=== PATIENT | male | born 1940 | race Caucasian/White ===

== ENCOUNTER → 2018-04-21 17:19 | Outpatient (CLI) | payer MEDICARE, OTHER, SELFPAY ==
[2018-04-21 18:03] LABS: Hematocrit 35.3 % (41-53)
[2018-04-21 18:21] LABS: BUN Creatinine Ratio 35.4 (6-22); Blood Urea Nitrogen 46 mg/dL (9-20); Calcium 9.2 mg/dL (8.4-10.2); Carbon Dioxide 30 mmol/L (22-32); Chloride 100 mmol/L (98-107); Estimated Glomerular Filt Rate 53.3 mL/min (>60); Glucose 101 mg/dL (80-110); HEMOLYSIS < 15 (0-50); Potassium 4.4 mmol/L (3.4-5.1); Sodium 141 mmol/L (137-145)
[2018-04-21 19:13] LABS: Total Iron Binding Capacity 349 ug/mL (261-462)
[2018-04-21 19:14] LABS: Creatinine Urine Random 53.1 mg/dL; Protein (Total) Urine Random 10 mg/dL (0-12); Protein Creatinine Ratio Urine 0.18 GRAM/24H
[2018-04-21 19:45] LABS: HEMOLYSIS < 15 (0-50)
[2018-04-21 20:02] LABS: Transferrin 253 mg/dL (206-381)
[2018-04-21 20:08] LABS: Iron 76 ug/dL (49-181); Percent Iron Saturation 22 % (20-50)
[2018-04-21 21:06] LABS: Ferritin 52.5 ng/mL (17.9-464)
[2018-04-23 14:58] LABS: Parathyroid Hormone Int 87 pg/mL (14-64)
== END ==
PROVIDERS: PCP Family Medicine; Visit Provider Student in an Organized Health Care Education/Training Program
DX: N05.9 Unspecified nephritic syndrome with unspecified morphologic changes (principal); D50.0 Iron deficiency anemia secondary to blood loss (chronic); D64.9 Anemia, unspecified; N25.81 Secondary hyperparathyroidism of renal origin; R80.9 Proteinuria, unspecified; D50.9 Iron deficiency anemia, unspecified
CPT/HCPCS: 36415; 80048; 82570; 82728; 83540; 83550; 83970; 84156; 85014; 85018

== ENCOUNTER → 2018-07-30 08:54 | Outpatient (CLI) | payer MEDICARE, OTHER, SELFPAY ==
--- NOTE | 2018-07-30 08:55 | DI.RAD.S_ITS ---
PROCEDURE: FL BARIUM SWALLOW W SPEECH INDICATIONS: trouble swallowing TECHNIQUE: Examination was conducted in conjunction with speech pathology per standard protocol. In the lateral projection, filming was performed of the patient swallowing. AP projection filming may also be performed with patient swallowing. COMPARISON: None. FINDINGS: Function: The oral preparatory phase appears normal, with proper containment. The subsequent oral propulsive phase appears normal. Relatively prominently diminished dorsal epiglottic tilt was observed during the pharyngeal phase of swallowing, and there was episodic mild anterior penetration of thin liquids without tracheal aspiration. The esophageal phase of swallowing did appear normal with all proffered substances. There was mild to moderate pathologic vallecular pooling. Morphology: No cricopharyngeal bar is identified. No cervical esophageal webs. No Zenker's diverticulum. No strictures. IMPRESSION: Diminished esophageal tilt during the pharyngeal phase of swallowing, anterior penetration observed without aspiration. Mild to moderate patellectomy were pooling of liquids was observed over the course of the examination. Dictated by: Noe Preston M.D. on 07/30/2018 at 11:06 Approved by: Noe Preston M.D. on 07/30/2018 at 11:09
== END ==
PROVIDERS: Family Provider Family Medicine; PCP Family Medicine; Visit Provider Family Medicine
DX: R13.10 Dysphagia, unspecified (principal)
CPT/HCPCS: 74230; 92611

== ENCOUNTER → 2018-08-13 08:54 | Outpatient (CLI) | payer MEDICARE, OTHER, SELFPAY ==
[2018-08-13 09:44] LABS: Alanine Aminotransferase 48 IU/L (21-72); Albumin 4.3 g/dL (3.5-5.0); Albumin Globulin Ratio 1.4 (1.0-2.8); Alkaline Phosphatase 71 U/L (38-126); Aspartate Aminotransferase 41 IU/L (17-59); BUN Creatinine Ratio 34.7 (6-22); Bilirubin Total 0.5 mg/dL (0.2-1.3); Blood Urea Nitrogen 52 mg/dL (9-20); Calcium 9.3 mg/dL (8.4-10.2); Carbon Dioxide 28 mmol/L (22-32); Chloride 106 mmol/L (98-107); Cholesterol 199 mg/dL (140-199); Estimated Glomerular Filt Rate 45.1 mL/min (>60); Glucose 128 mg/dL (80-110); HDL Cholesterol 46 mg/dL (40-60); HEMOLYSIS < 15 (0-50); Hemoglobin A1C% w Est Avg Glu 6.8 % (4.0-6.0); LDL Cholesterol Calculated 117 mg/dL (<100); Potassium 4.3 mmol/L (3.4-5.1); Sodium 145 mmol/L (137-145); Total Protein 7.3 g/dL (6.3-8.2); Triglycerides 181 mg/dL (35-150)
[2018-08-13 12:35] LABS: Thyroid Stimulating Hormone 2.97 uIU/mL (0.47-4.68)
[2018-08-13 13:13] LABS: Free T3, Triiodothyronine Free 2.02 pg/mL (2.77-5.27)
== END ==
PROVIDERS: PCP Family Medicine; Visit Provider Family Medicine
DX: E11.29 Type 2 diabetes mellitus with other diabetic kidney complication (principal); E11.9 Type 2 diabetes mellitus without complications; M48.061 Spinal stenosis, lumbar region without neurogenic claudication; N17.9 Acute kidney failure, unspecified; N18.3 Chronic kidney disease, stage 3 (moderate); Z95.2 Presence of prosthetic heart valve; E03.9 Hypothyroidism, unspecified
CPT/HCPCS: 36415; 80053; 80061; 83036; 84439; 84443; 84481

== ENCOUNTER → 2018-11-24 11:33 | Outpatient (CLI) | payer MEDICARE, OTHER, SELFPAY ==
[2018-11-24 12:27] LABS: Add Manual Diff / Slide Review NO; Basophils Percent Auto 0.6 % (0-2); Eosinophils Percent Auto 9.5 % (2-4); Hematocrit 36.2 % (41-53); Hemoglobin 11.8 g/dL (13.5-17.5); Hemoglobin A1C% w Est Avg Glu 7.8 % (4.0-6.0); Lymphocytes Percent Auto 20.4 % (25-40); Mean Corpuscular HGB Conc 32.6 % (30-36); Mean Corpuscular Hemoglobin 29.3 PG (26-34); Mean Corpuscular Volume 89.9 fL (80-100); Neutrophils Absolute Auto 3700 /uL (1500-7000); Neutrophils Percent Auto 60.5 % (50-75); Platelet Count 175 X10^3/uL (150-400); Red Blood Cell Count 4.03 X10^6/uL (4.5-5.9); Red Cell Distribution Width 14.1 % (11.6-14.8); White Blood Cell Count 6.2 X10^3/uL (4.5-11.0)
[2018-11-24 12:32] LABS: Alanine Aminotransferase 58 IU/L (21-72); Albumin 4.2 g/dL (3.5-5.0); Albumin Globulin Ratio 1.4 (1.0-2.8); Alkaline Phosphatase 70 U/L (38-126); Aspartate Aminotransferase 40 IU/L (17-59); BUN Creatinine Ratio 27.1 (6-22); Bilirubin Total 0.4 mg/dL (0.2-1.3); Blood Urea Nitrogen 38 mg/dL (9-20); Calcium 9.3 mg/dL (8.4-10.2); Carbon Dioxide 28 mmol/L (22-32); Chloride 104 mmol/L (98-107); Cholesterol 172 mg/dL (140-199); Estimated Glomerular Filt Rate 48.9 mL/min (>60); Glucose 128 mg/dL (80-110); HDL Cholesterol 48 mg/dL (40-60); HEMOLYSIS < 15 (0-50); LDL Cholesterol Calculated 98 mg/dL (<100); Potassium 4.1 mmol/L (3.4-5.1); Sodium 141 mmol/L (137-145); Total Protein 7.2 g/dL (6.3-8.2); Triglycerides 132 mg/dL (35-150)
[2018-11-24 12:53] LABS: Free T3, Triiodothyronine Free 2.62 pg/mL (2.77-5.27); Free T4, Direct Thyroxine 1.05 ng/dL (0.78-2.19)
== END ==
PROVIDERS: PCP Family Medicine; Visit Provider Family Medicine
DX: E03.9 Hypothyroidism, unspecified (principal); E11.9 Type 2 diabetes mellitus without complications; N18.3 Chronic kidney disease, stage 3 (moderate)
CPT/HCPCS: 36415; 80053; 80061; 83036; 84439; 84443; 84481; 85025

== ENCOUNTER → 2019-04-06 09:29 | Outpatient (CLI) | payer MEDICARE, OTHER, SELFPAY ==
[2019-04-06 10:31] LABS: Hemoglobin A1C% w Est Avg Glu 7.4 % (4.0-6.0)
[2019-04-06 10:34] LABS: Alanine Aminotransferase 43 IU/L (21-72); Albumin Globulin Ratio 1.3 (1.0-2.8); Alkaline Phosphatase 86 U/L (38-126); Aspartate Aminotransferase 36 IU/L (17-59); BUN Creatinine Ratio 29.4 (6-22); Bilirubin Total 0.4 mg/dL (0.2-1.3); Blood Urea Nitrogen 47 mg/dL (9-20); Calcium 9.5 mg/dL (8.4-10.2); Carbon Dioxide 32 mmol/L (22-32); Chloride 101 mmol/L (98-107); Estimated Glomerular Filt Rate 41.8 mL/min (>60); Glucose 153 mg/dL (80-110); HEMOLYSIS < 15 (0-50); Sodium 140 mmol/L (137-145)
[2019-04-06 10:41] LABS: Potassium 5.5 mmol/L (3.4-5.1)
== END ==
PROVIDERS: PCP Family Medicine; Visit Provider Family Medicine
DX: E03.9 Hypothyroidism, unspecified (principal); E11.9 Type 2 diabetes mellitus without complications
CPT/HCPCS: 36415; 80053; 83036

== ENCOUNTER → 2019-04-07 15:53 | Outpatient (CLI) | payer MEDICARE, OTHER, SELFPAY ==
[2019-04-07 16:27] LABS: HEMOLYSIS < 15 (0-50); Potassium 3.7 mmol/L (3.4-5.1)
== END ==
PROVIDERS: PCP Family Medicine; Visit Provider Family Medicine
DX: E87.5 Hyperkalemia (principal)
CPT/HCPCS: 36415; 84132

== ENCOUNTER → 2019-11-17 07:48 | Outpatient (CLI) | payer MEDICARE, OTHER, SELFPAY ==
[2019-11-17 08:01] LABS: Bacteria Urine None Seen; RBC Urine None Seen (0-5/HPF); WBC Urine None Seen (0-5/HPF)
[2019-11-17 08:13] LABS: Add Manual Diff / Slide Review NO; Basophils Absolute Auto 0 /uL (0-100); Basophils Percent Auto 0.5 % (0-2); Eosinophils Absolute Auto 300 /uL (0-450); Eosinophils Percent Auto 4.9 % (2-4); Hematocrit 32.8 % (41-53); Hemoglobin 11.2 g/dL (13.5-17.5); Lymphocytes Absolute Auto 900 /uL (1100-4500); Lymphocytes Percent Auto 13.5 % (25-40); Mean Corpuscular HGB Conc 34.1 % (30-36); Mean Corpuscular Hemoglobin 31.3 PG (26-34); Mean Corpuscular Volume 91.8 fL (80-100); Monocytes Absolute Auto 200 /uL (0-900); Monocytes Percent Auto 2.3 % (3-14); Neutrophils Absolute Auto 5500 /uL (1500-7000); Neutrophils Percent Auto 78.8 % (50-75); Platelet Count 236 X10^3/uL (150-400); Red Blood Cell Count 3.57 X10^6/uL (4.5-5.9); Red Cell Distribution Width 16.5 % (11.6-14.8)
[2019-11-17 08:16] LABS: Appearance Urine UA CLEAR; Bilirubin Urine UA NEGATIVE (NEGATIVE); Color Urine UA YELLOW; Glucose Urine UA NEGATIVE (Negative); Ketones Urine UA NEGATIVE (NEGATIVE); Leukocyte Esterase Urine UA NEGATIVE (NEGATIVE); Nitrite Urine UA NEGATIVE (Negative); Occult Blood Urine UA NEGATIVE (Negative); Protein Urine UA NEGATIVE (Negative); Specific Gravity Urine UA <=1.005 (1.000-1.035); Urobilinogen Urine UA 0.2 E.U./dL (0.2)
[2019-11-17 08:54] LABS: Alanine Aminotransferase 37 IU/L (<50); Albumin 4.2 g/dL (3.5-5.0); Albumin Globulin Ratio 1.7 (1.0-2.8); Alkaline Phosphatase 85 U/L (38-126); Aspartate Aminotransferase 50 IU/L (17-59); BUN Creatinine Ratio 31.3 (6-22); Bilirubin Total 0.6 mg/dL (0.2-1.3); Blood Urea Nitrogen 50 mg/dL (9-20); Calcium 9.3 mg/dL (8.4-10.2); Carbon Dioxide 32 mmol/L (22-32); Chloride 102 mmol/L (98-107); Cholesterol 169 mg/dL (140-199); Estimated Glomerular Filt Rate 41.8 mL/min (>60); Globulin 2.5 g/dL (1.7-4.1); Glucose 83 mg/dL (80-110); HDL Cholesterol 59 mg/dL (40-60); HEMOLYSIS < 15 (0-50); LDL Cholesterol Calculated 88 mg/dL (<100); Potassium 4.4 mmol/L (3.4-5.1); Sodium 141 mmol/L (137-145); Total Protein 6.7 g/dL (6.3-8.2); Triglycerides 110 mg/dL (35-150)
[2019-11-17 08:55] LABS: Culture Indicated Urine Cult Not Indicated; Urine Comments Microscopic Normal
[2019-11-17 09:21] LABS: Free T3, Triiodothyronine Free 2.33 pg/mL (2.77-5.27); Free T4, Direct Thyroxine 1.12 ng/dL (0.78-2.19)
[2019-11-17 09:35] LABS: Thyroid Stimulating Hormone 3.44 uIU/mL (0.47-4.68)
== END ==
PROVIDERS: PCP Family Medicine; Visit Provider Family Medicine
DX: E11.22 Type 2 diabetes mellitus with diabetic chronic kidney disease (principal); N18.3 Chronic kidney disease, stage 3 (moderate); I50.9 Heart failure, unspecified; E03.9 Hypothyroidism, unspecified; D64.9 Anemia, unspecified; M19.90 Unspecified osteoarthritis, unspecified site
CPT/HCPCS: 36415; 80053; 80061; 81001; 83036; 84439; 84443; 84481; 85025

== ENCOUNTER 2019-12-19 12:18 | Emergency (ER) | payer MEDICARE, OTHER, SELFPAY ==
[2019-12-19 12:30] VITALS: BP 121/70; PULSE 60; RESP 18; TEMP 36.7; O2SAT 97
[2019-12-19 14:00] VITALS: PULSE 60
--- NOTE | 2019-12-19 14:14 | DI.RAD.S_ITS ---
PROCEDURE: XR CHEST 1V INDICATIONS: chest pain TECHNIQUE: One view of the chest was acquired. COMPARISON: [facility], CHEST 1 VIEW, 08/07/2017, 13:58. [facility], CHEST 2 VIEW, 07/14/2017, 15:17. FINDINGS: Surgical changes and devices: Sternotomy wires, no acute disease. Lungs and pleura: Lungs are clear. No pleural effusions or pneumothorax. Mediastinum: Mediastinal contours appear normal. Heart size is normal. Bones and chest wall: No suspicious bony lesions. Overlying soft tissues appear unremarkable. IMPRESSION: Sternotomy wires, presumed prior CABG, source of chest pain is not seen. Dictated by: Noe Preston M.D. on 12/19/2019 at 14:57 Approved by: Noe Preston M.D. on 12/19/2019 at 14:58
--- NOTE | 2019-12-19 14:14 | DI.US.S_ITS ---
PROCEDURE: US PERIPH VENOUS LOW EXTREM RT INDICATIONS: EDEMA TECHNIQUE: Real-time imaging, as well as color and pulse Doppler interrogation, were performed of the lower extremity deep veins from the inguinal ligament to the popliteal fossa. COMPARISON: None. FINDINGS: The common femoral, femoral and popliteal veins are normally compressible, and free of intraluminal thrombus. Color and pulse Doppler demonstrate normal phasic intraluminal flow. There is normal augmentation response to distal compression maneuver. 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 on 12/19/2019 at 14:47 Approved by: Jassi Hilton M.D. on 12/19/2019 at 14:50
[2019-12-19 14:42] VITALS: BP 154/63; PULSE 56; RESP 16; O2SAT 98
[2019-12-19 15:00] VITALS: BP 145/62; PULSE 64; RESP 24
[2019-12-19 15:05] VITALS: BP 145/62; PULSE 63; RESP 15; O2SAT 97
[2019-12-19 15:05] LABS: Add Manual Diff / Slide Review NO; Basophils Absolute Auto 100 /uL (0-100); Basophils Percent Auto 0.5 % (0-2); Eosinophils Absolute Auto 200 /uL (0-450); Eosinophils Percent Auto 1.9 % (2-4); Hemoglobin 11.1 g/dL (13.5-17.5); Lymphocytes Absolute Auto 700 /uL (1100-4500); Lymphocytes Percent Auto 6.3 % (25-40); Mean Corpuscular HGB Conc 32.7 % (30-36); Mean Corpuscular Hemoglobin 31.8 PG (26-34); Mean Corpuscular Volume 97.1 fL (80-100); Monocytes Absolute Auto 1500 /uL (0-900); Monocytes Percent Auto 13.8 % (3-14); Neutrophils Absolute Auto 8200 /uL (1500-7000); Neutrophils Percent Auto 77.5 % (50-75); Platelet Count 157 X10^3/uL (150-400); White Blood Cell Count 10.6 X10^3/uL (4.5-11.0)
[2019-12-19 15:11] LABS: INR 3.4 (0.9-1.3); Prothrombin Time 40.3 SECONDS (10.1-12.7)
[2019-12-19 15:14] LABS: PTT Partial Thromboplastin Tim 47 SECONDS (26.4-36.2)
[2019-12-19 15:16] LABS: Alanine Aminotransferase 32 IU/L (<50); Albumin 4.4 g/dL (3.5-5.0); Albumin Globulin Ratio 1.3 (1.0-2.8); Alkaline Phosphatase 89 U/L (38-126); Aspartate Aminotransferase 34 IU/L (17-59); BUN Creatinine Ratio 31.4 (6-22); Bilirubin Total 0.6 mg/dL (0.2-1.3); Blood Urea Nitrogen 44 mg/dL (9-20); Calcium 9.4 mg/dL (8.4-10.2); Carbon Dioxide 31 mmol/L (22-32); Chloride 99 mmol/L (98-107); Creatine Kinase 169 U/L (55-170); Estimated Glomerular Filt Rate 48.8 mL/min (>60); Globulin 3.3 g/dL (1.7-4.1); Glucose 196 mg/dL (80-110); HEMOLYSIS < 15 (0-50); Lipase 41 U/L (23-300); Potassium 3.4 mmol/L (3.4-5.1); Sodium 138 mmol/L (137-145); Total Protein 7.7 g/dL (6.3-8.2)
[2019-12-19 15:27] LABS: Troponin I 0.028 ng/mL (0.01-0.034)
[2019-12-19 15:31] LABS: B Type Natriuretic Peptide 577 (<100); CKMB % Relative Index 1.8 % (1.5-5.0); Creatine Kinase MB 3.07 ng/mL (<2.37)
[2019-12-19 15:46] LABS: Erythrocyte Sedimentation Rate 52 MM/HR (0-15)
[2019-12-19 17:03] VITALS: BP 151/63; PULSE 60; RESP 18; O2SAT 98
--- NOTE | 2019-12-20 01:49 | ED_ITS ---
HPI - Extremity Problem <ROXANA Calderón - Last Filed: 12/20/19 03:19> General Chief complaint: Extremity Problem,Nontraumatic Stated complaint: right foot pain/swelling Time Seen by Provider: 12/19/19 14:27 Source: patient Mode of arrival: Wheelchair Limitations: no limitations History of Present Illness HPI Narrative: This is a 78-year-old male, former smoker, who presents to ED w ith his spouse and family with chief complain of non-traumatic right leg discomfort and swelling. Patient states onset of pain 5 days ago on arch of his right food which progressively radiating to ankle, posterior leg, knee and mid upper leg. Patient has been limping due to pain when he bears weight. He leonard had soak in Epsom salt, used ice and heat pack at home but pain has been getting worse. Patient was seen at [facility] ER this past Thursday and had x-ray test done which did not show any fracture. Patient has history of psoriatic arthritis and recently his medication has been changed from methotrexate to Leflunomide due to side effects from methotrexate. Patient also currently takes warfarin for video machines mechanic aortic valve replacement. Patient denies fever, chills, nausea or vomiting or redness to affected leg. Patient also report about 30 seconds in duration of mid sternal chest discomfort this morning which patient does not have at this time. Patient denies dyspnea. Patient is insulin- dependent diabetes, hypothyroidism, CHF, depression, prostate cancer, chronic kidney disease. Patient states he has been using his spouse is wheelchair and walker for ambulation at home. Related Data Home Medications Medication Instructions Recorded Confirmed aspirin 81 mg PO DAILY #0 07/22/11 12/19/19 sertraline 150 mg PO DAILY #0 10/11/12 12/19/19 budesonide 9 mg PO DAILY #0 07/14/17 12/19/19 multivitamin [Multiple Vitamins] 1 tab PO DAILY #0 07/14/17 12/19/19 insulin glargine 100 unit/mL (3 30 unit SUBCUT BEDTIME ml 10/29/18 12/19/19 mL) subcutaneous pen calcitriol 0.25 mcg capsule 0.25 mcg PO DAILY cap 01/11/19 12/19/19 metoprolol tartrate 25 mg tablet 25 mg PO BID tab 08/03/19 12/19/19 B complex [id number] 1 tab PO DAILY 12/19/19 12/19/19 [Dialyvite] Cinnamon Powder 1 dose PO DIRECTED 12/19/19 12/19/19 Glucose: Home Monitor 1 ea MISCELLANEOUS DIRECTED 12/19/19 12/19/19 Glucose: Test Strips 1 bot MISCELLANEOUS DIRECTED 12/19/19 12/19/19 Lancet: Device 1 box MISCELLANEOUS BID 12/19/19 12/19/19 calcitriol 0.5 mcg PO DAILY 12/19/19 12/19/19 calcium carbonate-vitamin D3 1 tab PO DAILY 12/19/19 12/19/19 [Calcium 500 + D] colchicine 0.6 mg PO DAILY 12/19/19 12/19/19 febuxostat 40 mg PO DAILY 12/19/19 12/19/19 ferrous sulfate 324 mg PO DAILY 12/19/19 12/19/19 fluticasone propionate 1 spray INTRANASAL DIRECTED 12/19/19 12/19/19 furosemide 120 mg PO DAILY 12/19/19 12/19/19 glucose 4 g PO Q15M PRN 12/19/19 12/19/19 leflunomide 20 mg PO DAILY 12/19/19 12/19/19 levothyroxine 0.175 mg PO DAILY 12/19/19 12/19/19 magnesium oxide 840 mg PO BEDTIME 12/19/19 12/19/19 methotrexate sodium See Rx Instructions .ROUTE .COMPLEX 12/19/19 12/19/19 ranitidine HCl 150 mg PO BEDTIME 12/19/19 12/19/19 temazepam 30 mg PO BEDTIME 12/19/19 12/19/19 warfarin 5 mg PO SUTUWETHSA 12/19/19 12/19/19 warfarin 7.5 mg PO MOFR 12/19/19 12/19/19 Previous Rx's Medication Instructions Recorded clotrimazole 1 % topical cream 1 applictn TOP TID #113 gram 10/10/19 prednisone 5 mg PO DAILY #14 tab 12/19/19 Allergies Allergy/AdvReac Type Severity Reaction Status Date / Time Penicillins [PENICILLINS] Allergy Unknown Verified 10/10/19 12:10 Review of Systems <ROXANA Calderón - Last Filed: 12/20/19 03:19> Review of Systems Narrative: General: Denies fever, chills, fatigue, malaise, sweats. HEENT: Denies sinus pain, ear pain, sore throat, difficulty swallowing, dizziness. Respiratory: Denies dyspnea, cough, wheezing, hemoptysis, sputum. Cardiovascular: Denies (+) resolved chest pain, palpitations, orthopnea, edema. Gastrointestinal: Denies nausea, vomiting, abdominal pain, diarrhea, constipation, melena. : Denies dysuria, frequency, incontinence, hematuria, urinary retention. Musculoskeletal: See HPI Skin: Denies rash, skin lesions, or other. Neurologic: Denies weakness, headache, numbness, change in speech, confusion, seizures, incoordination. Psychiatric: No concerning psychosocial issues. 12-point review of systems is negative except for those stated above. Patient History <ROXANA Calderón - Last Filed: 12/20/19 03:19> Medical History Asthma (Chronic Unknown) BPH (benign prostatic hyperplasia) (Chronic Unknown) CHF (congestive heart failure) (Chronic Unknown) Chronic kidney disease (CKD) (Chronic Unknown) Chronic pain syndrome (Chronic Unknown) Coronary artery disease (Chronic Unknown) Depression (Chronic Unknown) Diabetes (Chronic Unknown) GERD (gastroesophageal reflux disease) (Chronic Unknown) Gout (Chronic Unknown) Hyperlipemia (Chronic Unknown) Hypothyroidism (Chronic Unknown) Lumbar spinal stenosis (Chronic Unknown) Prostate cancer (Resolved Unknown) Psoriasis (Chronic Unknown) Varicose vein of leg (Resolved ~12/2015) Surgical History Hx of radical prostatectomy (Resolved 04/2014) Mechanical heart valve present (Resolved 06/1997) Family History Father Heart disease Mother No problems noted. Social History Smoking Status: Former smoker Smoking Status: Former smoker Substance Use Type: does not use Exam <ROXANA Calderón - Last Filed: 12/20/19 03:19> Narrative Exam Narrative: General appearance: well developed, well nourished, in no acute distress. Head: normocephalic, atraumatic, no scalp lesions, non-tender. ENT: Hearing grossly intact. Nose without bleeding, purulent discharge, septal hematoma or deviation. Turbinate without erythema or swelling. Mucous membrane moist, no mucosal lesion. Throat without erythema, tonsillar hypertrophy or exudate. Uvula in midline, airway patent. Neck/Thyroid: neck supple, full range of motion, no visible masses or meningeal signs. No JVD, non-tender without lymphadenopathy. Skin: no suspicious rashes, lesions over visible areas. Warm and dry and appropriate color for ethnicity. Heart: no clubbing, no cyanosis, no edema. S1 and S2 normal. RRR w/o murmurs, (+) clicks, or bruits. Lungs: Breathing even and unlabored. No stridor. No accessory muscles used. Able to speak in full sentences. Chest: normal shape and expansion. Abdomen: obese, non-distended, bowel sounds in 4 quadrants, soft abdomen. Neurologic: alert and oriented. Cognitive exam, SCALDER and PNS grossly intact on informal exam. Psych: good eye contact, normal affect. Initial Vital Signs Initial Vital Signs: Vital Signs Temperature 98.1 F 12/19/19 12:30 Pulse Rate 60 12/19/19 12:30 Respiratory Rate 18 12/19/19 12:30 Blood Pressure 121/70 12/19/19 12:30 Pulse Oximetry 97 12/19/19 12:30 Extrem Right lower extremity: normal capillary refill, edema Details: 1+, no joint enlargement, hip/thigh Details: no tenderness, knee Details: normal to inspection, tenderness Location: of the popliteal fossa and normal ROM, lower leg Details: tenderness and pitting edema Details: 1+; no erythema, no palpable cords, no abrasions, no lacerations, no ecchymosis, no penetrating wound, no deformity and no unusual warmth, ankle Details: normal to inspection, edema Details: 1+ and normal ROM; no abrasions, no lacerations, no ecchymosis, no crepitus and no penetrating wound and foot Details: normal capillary refill, tenderness Location: of the plantar foot, toes with normal ROM, edema Location: diffusely Details: 1+, vascular exam Details: dorsalis pedis pulse present, tendon exam Details: active flexion normal and active extension normal and motor-sensory exam Details: light-touch normal; no unusual warmth and no puncture wound <Edson Bradley MD - Last Filed: 12/21/19 21:22> Initial Vital Signs Initial Vital Signs: Vital Signs Temperature 98.1 F 12/19/19 12:30 Pulse Rate 60 12/19/19 12:30 Respiratory Rate 18 12/19/19 12:30 Blood Pressure 121/70 12/19/19 12:30 Pulse Oximetry 97 12/19/19 12:30 Scores <Maurisio ROXANA Trejo - Last Filed: 12/20/19 03:19> GCS [place] coma scale eye opening: Spontaneous [place] coma scale verbal response: Orientated [place] coma scale motor response: Obey commands [place] coma scale total score: 15 MDM - Extremity (Nontraumatic) <Maurisio ROXANA Trejo - Last Filed: 12/20/19 03:19> Differential Diagnosis Differential diagnosis: Likely cellulitis, lower extremity edema, deep vein thrombosis of lower extremity and other (arthritic pain, venous insufficiency, lymphadema) Medical Records Attestation: I reviewed the patient's medical records. Lab Data Attestation: I reviewed the patient's lab results. Result diagrams: 12/19/19 14:56 12/19/19 14:56 Labs: Lab Results 12/19/19 12/19/19 12/19/19 Range/Units 14:56 14:56 14:56 WBC 10.6 (4.5-11.0) X10^3/uL RBC 3.50 L (4.5-5.9) X10^6/uL Hgb 11.1 L (13.5-17.5) g/dL Hct 34.0 L (41-53) % MCV 97.1 (80-100) fL MCH 31.8 (26-34) PG MCHC 32.7 (30-36) % RDW 17.0 H (11.6-14.8) % Plt Count 157 (150-400) X10^3/uL Neut % (Auto) 77.5 H (50-75) % Lymph % (Auto) 6.3 L (25-40) % [place] % (Auto) 13.8 (3-14) % Eos % (Auto) 1.9 L (2-4) % Baso % (Auto) 0.5 (0-2) % Neut # (Auto) 8200 H (5215-1070) /uL Lymph # (Auto) 700 L (2586-1355) /uL [place] # (Auto) 1500 H (0-900) /uL Eos # (Auto) 200 (0-450) /uL Baso # (Auto) 100 (0-100) /uL ESR (0-15) MM/HR PT 40.3 H (10.1-12.7) SECONDS INR 3.4 H (0.9-1.3) APTT 47 H (26.4-36.2) SECONDS Sodium 138 (137-145) mmol/L Potassium 3.4 (3.4-5.1) mmol/L Chloride 99 (98-107) mmol/L Carbon Dioxide 31 (22-32) mmol/L BUN 44 H (9-20) mg/dL Creatinine 1.40 H (0.66-1.25) mg/dL Estimated GFR 48.8 L (>60) mL/min BUN/Creatinine Ratio 31.4 H (6-22) Glucose 196 H (80-110) mg/dL Calcium 9.4 (8.4-10.2) mg/dL Total Bilirubin 0.6 (0.2-1.3) mg/dL AST 34 (17-59) IU/L ALT 32 (<50) IU/L Alkaline Phosphatase 89 (38-126) U/L Total Creatine Kinase 169 (55-170) U/L CK-MB (CK-2) 3.07 H (<2.37) ng/mL CK-MB (CK-2) Rel Index 1.8 (1.5-5.0) % Troponin I 0.028 (0.01-0.034) ng/mL C-Reactive Protein (<1.0) mg/dL B-Natriuretic Peptide 577 H (<100) Total Protein 7.7 (6.3-8.2) g/dL Albumin 4.4 (3.5-5.0) g/dL Globulin 3.3 (1.7-4.1) g/dL Albumin/Globulin Ratio 1.3 (1.0-2.8) Lipase 41 (23-300) U/L 12/19/19 12/19/19 Range/Units 14:56 14:56 WBC (4.5-11.0) X10^3/uL RBC (4.5-5.9) X10^6/uL Hgb (13.5-17.5) g/dL Hct (41-53) % MCV (80-100) fL MCH (26-34) PG MCHC (30-36) % RDW (11.6-14.8) % Plt Count (150-400) X10^3/uL Neut % (Auto) (50-75) % Lymph % (Auto) (25-40) % [place] % (Auto) (3-14) % Eos % (Auto) (2-4) % Baso % (Auto) (0-2) % Neut # (Auto) (2900-4713) /uL Lymph # (Auto) (2341-4872) /uL [place] # (Auto) (0-900) /uL Eos # (Auto) (0-450) /uL Baso # (Auto) (0-100) /uL ESR 52 H (0-15) MM/HR PT (10.1-12.7) SECONDS INR (0.9-1.3) APTT (26.4-36.2) SECONDS Sodium (137-145) mmol/L Potassium (3.4-5.1) mmol/L Chloride (98-107) mmol/L Carbon Dioxide (22-32) mmol/L BUN (9-20) mg/dL Creatinine (0.66-1.25) mg/dL Estimated GFR (>60) mL/min BUN/Creatinine Ratio (6-22) Glucose (80-110) mg/dL Calcium (8.4-10.2) mg/dL Total Bilirubin (0.2-1.3) mg/dL AST (17-59) IU/L ALT (<50) IU/L Alkaline Phosphatase (38-126) U/L Total Creatine Kinase (55-170) U/L CK-MB (CK-2) (<2.37) ng/mL CK-MB (CK-2) Rel Index (1.5-5.0) % Troponin I (0.01-0.034) ng/mL C-Reactive Protein 7.0 H (<1.0) mg/dL B-Natriuretic Peptide (<100) Total Protein (6.3-8.2) g/dL Albumin (3.5-5.0) g/dL Globulin (1.7-4.1) g/dL Albumin/Globulin Ratio (1.0-2.8) Lipase (23-300) U/L Imaging Data US-Vascular RT leg: Radiologist's Impression: [address] [id number] Ultrasound Report Signed Patient: Michael Corado JMR#: [id number] : 9Acct:[id number] Age/Sex: 78 / MDate of Service: 12/19/19 Loc: ED Accession Number: [id number] Procedure: US periph venous low extrem rt Ordering Provider: Edson Bradley MD PROCEDURE: US PERIPH VENOUS LOW EXTREM RT INDICATIONS: EDEMA TECHNIQUE: Real-time imaging, as well as color and pulse Doppler interrogation, were performed of the lower extremity deep veins from the inguinal ligament to the popliteal fossa. COMPARISON: None. FINDINGS: The common femoral, femoral and popliteal veins are normally compressible, and free of intraluminal thrombus. Color and pulse Doppler demonstrate normal phasic intraluminal flow. There is normal augmentation response to distal compression maneuver. 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 on 12/19/2019 at 14:47 Approved by: Jassi Hilton M.D. on 12/19/2019 at 14:50 ECG Data Attestation EKG: I personally reviewed and interpreted this ECG as follows: Prior ECG tracings: available for review Interpretation: Sinus bradycardia with first-degree AV block rate at 55 Intraventricular conduction delay Q-wave in V1 and V2 of in did terminate age [place] int 254, QRS duration 132, QT/QTc 482/472 No significant change from previous EKG MDM Narrative Medical decision making narrative: This is a 78-year-old gentleman who presents to ED with nontraumatic right leg discomfort and mild swelling for last 5 days. Patient was evaluated in [facility] ER 2 days ago and x-ray test was done without acute findings. 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 Patient is currently on Coumadin for status post mechanical aortic valve replacement. INR today is 3.4. Patient also had a 32nd duration of discomfort in his chest this morning. EKG without much change previous EKG. Sinus bradycardia with first-degree AV. Chest x-ray without ac osmani disease process. Today's kidney function test was at baseline or mildly improved since October. Normal CK with mildly elevated CK and of 3.07 and normal troponin and of 0.028 today. This is likely due to chronic kidney disease. BNP was 577 and patient takes 40 mg of Lasix t.i.d.. Patient has isolated right mild swelling and is not likely congestive heart failure. Patient does not have difficulty breathing. No leukocytosis but mildly elevated neutrophil. Physical exam is not consistent with cellulitis. Patient afebrile with normal/HTN. CRP and ESR was somewhat elevated wtih 7.[address] Swain with elevated BNP, CK-MB, and brief period of chest pain and Dr. Swain assured that patient's symptoms is not likely due to heart condition. consulated at RA clinic at [facility] for patient's symptoms and elevated ESR and CRP and clinical findings and informed that this may cause due to patient's pre-existing and worsening of the arthritis condition. Advised to stop taking Leflunomide although patient symptom is not likely due to medication side effect but to restart low-dose of prednisone 5 mg daily. Advised patient to schedule a follow-up appointment at [facility] and to follow up with PCP as well. Patient advised to elevate his affected limb during rest and use walker or wheelchair for mobilization. Return precautions were discussed with patient and patient and family member verbalized understanding and agree with treatment plan. <Edson Bradley MD - Last Filed: 12/21/19 21:22> Lab Data Labs: Lab Results 12/19/19 12/19/19 12/19/19 Range/Units 14:56 14:56 14:56 WBC 10.6 (4.5-11.0) X10^3/uL RBC 3.50 L (4.5-5.9) X10^6/uL Hgb 11.1 L (13.5-17.5) g/dL Hct 34.0 L (41-53) % MCV 97.1 (80-100) fL MCH 31.8 (26-34) PG MCHC 32.7 (30-36) % RDW 17.0 H (11.6-14.8) % Plt Count 157 (150-400) X10^3/uL Neut % (Auto) 77.5 H (50-75) % Lymph % (Auto) 6.3 L (25-40) % [place] % (Auto) 13.8 (3-14) % Eos % (Auto) 1.9 L (2-4) % Baso % (Auto) 0.5 (0-2) % Neut # (Auto) 8200 H (2932-1633) /uL Lymph # (Auto) 700 L (0989-6063) /uL [place] # (Auto) 1500 H (0-900) /uL Eos # (Auto) 200 (0-450) /uL Baso # (Auto) 100 (0-100) /uL ESR (0-15) MM/HR PT 40.3 H (10.1-12.7) SECONDS INR 3.4 H (0.9-1.3) APTT 47 H (26.4-36.2) SECONDS Sodium 138 (137-145) mmol/L Potassium 3.4 (3.4-5.1) mmol/L Chloride 99 (98-107) mmol/L Carbon Dioxide 31 (22-32) mmol/L BUN 44 H (9-20) mg/dL Creatinine 1.40 H (0.66-1.25) mg/dL Estimated GFR 48.8 L (>60) mL/min BUN/Creatinine Ratio 31.4 H (6-22) Glucose 196 H (80-110) mg/dL Calcium 9.4 (8.4-10.2) mg/dL Total Bilirubin 0.6 (0.2-1.3) mg/dL AST 34 (17-59) IU/L ALT 32 (<50) IU/L Alkaline Phosphatase 89 (38-126) U/L Total Creatine Kinase 169 (55-170) U/L CK-MB (CK-2) 3.07 H (<2.37) ng/mL CK-MB (CK-2) Rel Index 1.8 (1.5-5.0) % Troponin I 0.028 (0.01-0.034) ng/mL C-Reactive Protein (<1.0) mg/dL B-Natriuretic Peptide 577 H (<100) Total Protein 7.7 (6.3-8.2) g/dL Albumin 4.4 (3.5-5.0) g/dL Globulin 3.3 (1.7-4.1) g/dL Albumin/Globulin Ratio 1.3 (1.0-2.8) Lipase 41 (23-300) U/L 12/19/19 12/19/19 Range/Units 14:56 14:56 WBC (4.5-11.0) X10^3/uL RBC (4.5-5.9) X10^6/uL Hgb (13.5-17.5) g/dL Hct (41-53) % MCV (80-100) fL MCH (26-34) PG MCHC (30-36) % RDW (11.6-14.8) % Plt Count (150-400) X10^3/uL Neut % (Auto) (50-75) % Lymph % (Auto) (25-40) % [place] % (Auto) (3-14) % Eos % (Auto) (2-4) % Baso % (Auto) (0-2) % Neut # (Auto) (7308-2029) /uL Lymph # (Auto) (5388-6035) /uL [place] # (Auto) (0-900) /uL Eos # (Auto) (0-450) /uL Baso # (Auto) (0-100) /uL ESR 52 H (0-15) MM/HR PT (10.1-12.7) SECONDS INR (0.9-1.3) APTT (26.4-36.2) SECONDS Sodium (137-145) mmol/L Potassium (3.4-5.1) mmol/L Chloride (98-107) mmol/L Carbon Dioxide (22-32) mmol/L BUN (9-20) mg/dL Creatinine (0.66-1.25) mg/dL Estimated GFR (>60) mL/min BUN/Creatinine Ratio (6-22) Glucose (80-110) mg/dL Calcium (8.4-10.2) mg/dL Total Bilirubin (0.2-1.3) mg/dL AST (17-59) IU/L ALT (<50) IU/L Alkaline Phosphatase (38-126) U/L Total Creatine Kinase (55-170) U/L CK-MB (CK-2) (<2.37) ng/mL CK-MB (CK-2) Rel Index (1.5-5.0) % Troponin I (0.01-0.034) ng/mL C-Reactive Protein 7.0 H (<1.0) mg/dL B-Natriuretic Peptide (<100) Total Protein (6.3-8.2) g/dL Albumin (3.5-5.0) g/dL Globulin (1.7-4.1) g/dL Albumin/Globulin Ratio (1.0-2.8) Lipase (23-300) U/L Discharge Plan Departure Patient Disposition: Home Clinical Impression: Lower extremity pain, left, Arthritis Discharge Date/Time: 12/19/19 18:12 Instructions: DI for Leg Pain Activity Restrictions/Additional Instructions: You have been diagnosed with [left leg swelling and discomfort. Ultrasound does not show DVT. Lab tests were unremarkable with mildly elevated CRP of 7.0 and ESR 52. Today's INR is 3.4. EKG does not look it has been changed since last EKG. I spoke with Dr. Beltrán over the phone to discuss the findings and he requested you stop taking leflunomide and start taking prednisone but he is not too convinced this medication is causing her symptoms.]. What to do: *Take your medications as directed. Please take 5 mg prednisone daily for next couple of weeks. The medication has been transmitted to [facility]. Continue your current medications. Please use a walker and/or wheelchair, other supportive device for ambulation and weight-bearing to prevent falling. *Follow up with your primary care provider in 2-3 days, call for an appointment. Keep your appointment with seed trucker tomorrow as scheduled and follow up with Dr. Beltrán and bike mechanic. Let them know you were seen in the ED and that we asked you to be seen in follow up. *Return to ED if you have any new, worsening, or concerning symptoms, such as [chest pain, breathing difficulty, unable to tolerate fluids, stomach discom fort, fever, or any acute concerns]. Prescriptions: New prednisone 5 mg tablet 5 mg PO DAILY Qty: 14 RF: 0 No Action insulin glargine [Lantus Solostar U-100 Insulin] 100 unit/mL (3 mL) insulin pen 30 unit SUBCUT BEDTIME RF: 0 calcitriol [Rocaltrol] 0.25 mcg capsule 0.25 mcg PO DAILY RF: 0 clotrimazole 1 % cream 1 applictn TOP TID Qty: 113 RF: 0 aspirin 81 mg Tablet,Delayed Release (Dr/Ec) 81 mg PO DAILY Qty: 0 RF: 0 sertraline 100 MG tablet 150 mg PO DAILY Qty: 0 RF: 0 multivitamin [Multiple Vitamins] 1 EACH tablet 1 tab PO DAILY Qty: 0 RF: 0 budesonide 3 MG capsule,delayed,extend.release 9 mg PO DAILY Qty: 0 RF: 0 metoprolol tartrate 25 mg tablet 25 mg PO BID RF: 0 leflunomide 20 mg tablet 20 mg PO DAILY RF: 0 methotrexate sodium 2.5 mg tablet See Rx Instructions .ROUTE .COMPLEX RF: 0 temazepam 30 mg capsule 30 mg PO BEDTIME RF: 0 colchicine 0.6 mg Tablet 0.6 mg PO DAILY RF: 0 febuxostat 40 mg Tablet 40 mg PO DAILY RF: 0 Dialyvite 1-384-230-50 cu-yy-gkw-mg Tablet 1 tab PO DAILY RF: 0 Cinnamon Powder 1 dose PO DIRECTED RF: 0 magnesium oxide 420 mg Tablet 840 mg PO BEDTIME RF: 0 warfarin 5 mg Tablet 7.5 mg PO MOFR RF: 0 warfarin 5 mg Tablet 5 mg PO SUTUWETHSA RF: 0 glucose 4 gram Tablet,Chewable 4 g PO Q15M PRN (Reason: glucose) RF: 0 fluticasone propionate 50 mcg/actuation [place],Suspension 1 spray INTRANASAL DIRECTED RF: 0 ferrous sulfate 324 mg (65 mg iron) Tablet,Delayed Release (Dr/Ec) 324 mg PO DAILY RF: 0 levothyroxine 175 MCG tablet 0.175 mg PO DAILY RF: 0 ranitidine HCl 150 MG tablet 150 mg PO BEDTIME RF: 0 Glucose: Home Monitor 1 ea miscellaneous DIRECTED RF: 0 Glucose: Test Strips 1 bot miscellaneous DIRECTED RF: 0 Lancet: Device 1 box miscellaneous BID RF: 0 furosemide 80 mg Tablet 120 mg PO DAILY RF: 0 calcitriol 0.5 mcg Capsule 0.5 mcg PO DAILY RF: 0 calcium carbonate-vitamin D3 [Calcium 500 + D] 500 mg(1,250mg) -200 unit Tablet 1 tab PO DAILY RF: 0 Referrals: Lamin Pena DO [Physician] - Harinder Beltrán MD [Non-Staff] -
== END 2019-12-19 18:12 | disposition home or self-care (01) ==
PROVIDERS: Emergency Medicine; Emergency Provider Nurse Practitioner Family; PCP Family Medicine
DX: M79.605 Pain in left leg (principal); M19.90 Unspecified osteoarthritis, unspecified site; E11.8 Type 2 diabetes mellitus with unspecified complications; Z79.4 Long term (current) use of insulin; E03.9 Hypothyroidism, unspecified; N18.9 Chronic kidney disease, unspecified; R07.9 Chest pain, unspecified; Z79.01 Long term (current) use of anticoagulants
CPT/HCPCS: 36415; 71045; 80053; 82550; 82553; 83690; 83880; 84484; 85025; 85610; 85651; 85730; 86140; 93005; 93971; 99284; 99285

== ENCOUNTER → 2020-06-20 11:34 | Outpatient (CLI) | payer MEDICARE, OTHER, SELFPAY ==
[2020-06-20 14:16] LABS: Add Manual Diff / Slide Review NO; Basophils Absolute Auto 0 /uL (0-100); Basophils Percent Auto 0.7 % (0-2); Eosinophils Absolute Auto 300 /uL (0-450); Eosinophils Percent Auto 6.1 % (2-4); Hematocrit 33.5 % (41-53); Lymphocytes Absolute Auto 500 /uL (1100-4500); Lymphocytes Percent Auto 11.2 % (25-40); Mean Corpuscular HGB Conc 32.9 % (30-36); Mean Corpuscular Hemoglobin 28.6 PG (26-34); Mean Corpuscular Volume 87.1 fL (80-100); Monocytes Absolute Auto 400 /uL (0-900); Monocytes Percent Auto 9.5 % (3-14); Neutrophils Absolute Auto 3400 /uL (1500-7000); Neutrophils Percent Auto 72.5 % (50-75); Platelet Count 145 X10^3/uL (150-400); Red Blood Cell Count 3.85 X10^6/uL (4.5-5.9); Red Cell Distribution Width 14.3 % (11.6-14.8); White Blood Cell Count 4.7 X10^3/uL (4.5-11.0)
[2020-06-20 14:49] LABS: Alanine Aminotransferase 35 IU/L (<50); Albumin 3.9 g/dL (3.5-5.0); Albumin Globulin Ratio 1.3 (1.0-2.8); Alkaline Phosphatase 80 U/L (38-126); Aspartate Aminotransferase 42 IU/L (17-59); BUN Creatinine Ratio 29.7 (6-22); Bilirubin Total 0.5 mg/dL (0.2-1.3); Blood Urea Nitrogen 33 mg/dL (9-20); Carbon Dioxide 31 mmol/L (22-32); Chloride 104 mmol/L (98-107); Cholesterol 170 mg/dL (140-199); Estimated Glomerular Filt Rate > 60.0 mL/min (>60); Globulin 2.9 g/dL (1.7-4.1); Glucose 105 mg/dL (80-110); HDL Cholesterol 61 mg/dL (40-60); HEMOLYSIS < 15 (0-50); LDL Cholesterol Calculated 85 mg/dL (<100); Sodium 140 mmol/L (137-145); Total Protein 6.8 g/dL (6.3-8.2); Triglycerides 121 mg/dL (35-150)
[2020-06-20 15:01] LABS: Free T4, Direct Thyroxine 1.16 ng/dL (0.78-2.19)
[2020-06-20 15:14] LABS: Prostate Specific Antigen < 0.064 ng/mL (0.10-4.00)
[2020-06-20 15:15] LABS: Thyroid Stimulating Hormone 2.35 uIU/mL (0.47-4.68)
== END ==
PROVIDERS: PCP Family Medicine; Referring Provider Family Medicine; Visit Provider Family Medicine
DX: D64.9 Anemia, unspecified (principal); E03.9 Hypothyroidism, unspecified; E11.9 Type 2 diabetes mellitus without complications; I50.9 Heart failure, unspecified; M10.9 Gout, unspecified; N18.3 Chronic kidney disease, stage 3 (moderate); Z85.46 Personal history of malignant neoplasm of prostate
CPT/HCPCS: 36415; 80053; 80061; 84153; 84439; 84443; 85025

== ENCOUNTER → 2020-08-28 11:02 | Outpatient (CLI) | payer MEDICARE, OTHER, SELFPAY ==
--- NOTE | 2020-08-28 | DI.ECHO.S_ITS ---
[facility]---------+ [facility] +---------+ : : [address] : : : : [id number] : : : : Phone: [phone] Echocardiogram Report + + :Name: DENICE HARO Study Date: 08/28/2020 Height: 65 in : :[facility] Weight: 228 lb : : Gender: Male BSA: 2.1 m2 : :: 1940 Age: 79 yrs BP: 138/69 mmHg: :Reason For Study: PROSTHETIC HEART VALVE : :Ordering Physician: Angelia : :Radha English Performed By: Sofia Carter : :Referring: ANGELIA ENGLISH : + + Interpretation Summary The left ventricle is normal in size. The ejection fraction is estimated to be 60-65%. There has been no significant change in LVEF since the previous exam. The right ventricle is normal in size and function. There is a mechanical aortic valve. The peak aortic velocity is 2.9 m/sec. The aortic valve mean gradient is 20 mmHg. The peak aortic velocity on the previous exam was 2.9 m/sec. The ascending aorta is moderately enlarged. 4.8 cm in diameter which is unchanged from the previous study. Moderate atherosclerotic plaque(s) in the aortic arch. Procedure: A two-dimensional transthoracic echocardiogram with color flow and Doppler was performed. The study quality was technically adequate. Comparison is made with the echocardiogram of 12/31/2018. The heart rate ranged between 48-53 bpm during the study. The patient had occasional PVCs during the exam. The patient was in sinus bradycardia with heart rates between 48-53 bpm during the exam. Left Ventricle: The left ventricle is normal in size. Left ventricular wall thickness is mild-moderately increased. Proximal septal thickening is noted. There is no thrombus. The ejection fraction is estimated to be 60-65%. There has been no significant change since the previous exam. There are no focal wall motion abnormalities. MV E/A: 1.2 Med Peak E' Juan: 5.1 cm/sec E/E' med: 22.2. Right Ventricle: The right ventricle is normal in size and function. Atria: The left atrial size is normal. Both atria have remained unchanged in size since the prior echo exam. Right atrial size is normal. There is no Doppler evidence for an interatrial shunt. Mitral Valve: The mitral valve leaflets appear mildly thickened, but open well. There is mild mitral annular calcification. The mitral papillary muscle appears thickened and/or calcified. No significant mitral valve stenosis. There is trace mitral regurgitation. Aortic Valve: There is a mechanical aortic valve. The prosthetic aortic valve is well-seated. The peak aortic velocity is 2.9 m/sec. The aortic valve mean gradient is 20 mmHg. The peak aortic velocity on the previous exam was 2.9 m/sec. No aortic regurgitation is present. Tricuspid Valve: The tricuspid valve is not well visualized, but is grossly normal. There is trace tricuspid regurgitation. Pulmonary artery pressures cannot be estimated because of the lack of a measurable TR jet velocity but the IVC suggests a CVP of around 3 mmHg. Pulmonic Valve: The pulmonic valve is not well visualized. There is no pulmonic valvular regurgitation. Great Vessels: The aortic root is not well visualized. The ascending aorta is moderately enlarged. Moderate atherosclerotic plaque(s) in the aortic arch. The IVC is of normal diameter and collapses greater than 50% with a sniff. This suggests a low right atrial pressure of 3 mm Hg. Pericardium/ Pleura There is no pericardial effusion. There is no pleural effusion. MMode/2D Measurements & Calculations LVIDd: 5.9 cm LVOT diam: 2.0 cm LVIDs: 3.9 cm asc Aorta Diam: 4.8 cm FS: 34.8 % Ao Arch Diam (Prox Trans): 3.4 cm EPSS: 1.3 cm IVSd: 1.4 cm LVPWd: 1.1 cm LV vang. diameter/BSA (cm/m^2): 2.8 LV sys. diameter/BSA (cm/m^2): 1.9 LA A2 area: 25.1 cm2 RA long axis: 5.6 cm LA A4 area: 19.8 cm2 RA area: 19.8 cm2 LA length (vol): 6.1 cm RA vol: 60.3 ml LA vol: 69.3 ml RA : 28.8 ml/m2 LA vol index: 33.2 ml/m2 IVC diam: 1.1 cm RVD1 (basal): 3.9 cm TAPSE: 2.0 cm Doppler Measurements & Calculations Ao V2 max: 290.3 cm/sec LVOT Max Juan: 70.8 cm/sec Ao V2 mean: 210.2 cm/sec LV V1 max P.0 mmHg Ao max P.7 mmHg LV V1 VTI: 19.3 cm Ao mean P.8 mmHg POORNIMA(I,D): 0.82 cm2 Ao V2 VTI: 74.6 cm POORNIMA(V,D): 0.77 cm2 sev ratio: 0.26 POORNIMA indexed to BSA (cm^2/m^2): 0.39 MV E max juan: 113.9 cm/sec PA V2 max: 65.3 cm/sec MV A max juan: 91.7 cm/sec PA V2 mean: 40.9 cm/sec MV E/A: 1.2 PA mean P.79 mmHg Med Peak E' Juan: 5.1 cm/sec PA pr(Accel): 10.5 mmHg E/E' med: 22.2 Lat Peak E' Juan: 4.7 cm/sec E/E' lat: 24.1 E/e' average: 23.2 MV dec time: 0.27 sec SV(LVOT): 60.8 ml Reading Physician:11:34 AM
== END ==
PROVIDERS: PCP Family Medicine; Referring Provider Internal Medicine Cardiovascular Disease; Visit Provider Internal Medicine Cardiovascular Disease
DX: I77.810 Thoracic aortic ectasia (principal); I70.0 Atherosclerosis of aorta; I48.0 Paroxysmal atrial fibrillation; Z95.2 Presence of prosthetic heart valve
CPT/HCPCS: 93306

== ENCOUNTER 2021-03-05 13:04 | Emergency (ER) | payer MEDICARE, OTHER, SELFPAY ==
[2021-03-05 13:07] VITALS: BP 191/86; PULSE 60; RESP 22; TEMP 36.3; O2SAT 100
--- NOTE | 2021-03-05 14:20 | ED.LOWEXIN ---
HPI - Extremity Injury (Lower) General Chief Complaint: Extremity Injury, Lower Stated Complaint: RIGHT LEG BLACK AND BLUE GROIN PAIN Time Seen by Provider: 03/05/21 13:20 Source: patient Mode of arrival: Ambulatory History of Present Illness HPI Narrative: 80-year-old gentleman with a history of an aortic valve replacement anticoagulated on warfarin, coronary artery disease, renal dysfunction, gout, congestive heart failure, diabetes presents with increasing right hip and lower extremity pain. About a month ago he clearly had some sort of event with a large amount of blood that was evident draining down the medial aspect of the leg with significant bruising. There still is evolving hematoma on the medial aspect but the upper thigh and medial calf but this portion has gotten much better. He complains of increasing pain in the proximal thigh and hip over the last week to the point that he is having difficulty walking. He describes no significant trauma. He does use a walker but is having more and more difficulty with ambulation due to hip pain. Today he notes that it feels as if his legs going to give out completely due to hip pain. Related Data Home Medications Medication Instructions Recorded Confirmed sertraline 150 mg PO DAILY #0 10/11/12 12/28/19 multivitamin [Multiple Vitamins] 1 tab PO DAILY #0 07/14/17 12/28/19 metoprolol tartrate 25 mg tablet 25 mg PO BID tab 08/03/19 12/28/19 B complex 51-[id number]-[id number]-biot-zinc 1 tab PO DAILY 12/19/19 12/28/19 [Dialyvite] Cinnamon Powder 1 dose PO DIRECTED 12/19/19 12/28/19 Glucose: Home Monitor 1 ea MISCELLANEOUS DIRECTED 12/19/19 12/28/19 Glucose: Test Strips 1 bot MISCELLANEOUS DIRECTED 12/19/19 12/28/19 Lancet: Device 1 box MISCELLANEOUS BID 12/19/19 12/28/19 calcitriol 0.5 mcg PO DAILY 12/19/19 12/28/19 calcium carbonate-vitamin D3 1 tab PO DAILY 12/19/19 12/28/19 [Calcium 500 + D] colchicine 0.6 mg PO DAILY 12/19/19 12/28/19 febuxostat 40 mg PO DAILY 12/19/19 12/28/19 ferrous sulfate 324 mg PO DAILY 12/19/19 12/28/19 fluticasone propionate 1 spray INTRANASAL DIRECTED 12/19/19 12/28/19 glucose 4 g PO Q15M PRN 12/19/19 12/28/19 leflunomide 20 mg PO DAILY 12/19/19 12/28/19 levothyroxine 0.175 mg PO DAILY 12/19/19 12/28/19 magnesium oxide 840 mg PO BEDTIME 12/19/19 12/28/19 ranitidine HCl 150 mg PO BEDTIME 12/19/19 12/28/19 furosemide 40 mg tablet 120 mg PO DAILY tab 06/22/20 06/22/20 insulin glargine 100 unit/mL (3 35 unit SUBCUT BEDTIME ml 06/22/20 06/22/20 mL) subcutaneous pen prednisone 5 mg tablet 5 mg PO DAILY 06/22/20 06/22/20 warfarin 5 mg tablet 7.5 mg PO .MWF tab 06/22/20 06/22/20 warfarin 5 mg tablet 10 mg PO QTUTHSASU tab 06/22/20 06/22/20 Previous Rx's Medication Instructions Recorded oxycodone-acetaminophen 5 mg-325 1 tab PO Q6H PRN #60 tab 06/16/16 mg tablet clotrimazole 1 % topical cream 1 applictn TOP TID #113 gram 10/10/19 handicap placard #1 ea 11/13/20 temazepam 30 mg capsule 30 mg PO BEDTIME PRN #90 cap 02/28/21 oxycodone-acetaminophen 1 tab PO Q6H PRN #14 tab 03/05/21 Allergies Allergy/AdvReac Type Severity Reaction Status Date / Time Penicillins [PENICILLINS] Allergy Unknown Verified 06/22/20 14:30 Review of Systems Review of Systems Narrative: Pertinent positive and negative findings as per HPI Remainder of review of systems is otherwise unremarkable for Constitutional: Fevers, chills, weakness ENT: No sore throat, neck pain, ear pain CV: Chest pain, palpitations, Respiratory: Cough, wheeze, dyspnea GI: Nausea, vomiting, diarrhea, : Dysuria, hematuria, Patient History Medical History (Updated 03/05/21 @ 17:11 by Elsa Love MD) Asthma (Unknown) BPH (benign prostatic hyperplasia) (Unknown) CHF (congestive heart failure) (Unknown) Chronic kidney disease (CKD) (Unknown) Chronic pain syndrome (Unknown) Coronary artery disease (Unknown) Depression (Unknown) Diabetes (Unknown) GERD (gastroesophageal reflux disease) (Unknown) Gout (Unknown) Hyperlipemia (Unknown) Hypothyroidism (Unknown) Lumbar spinal stenosis (Unknown) Prostate cancer (Unknown) Psoriasis (Unknown) Varicose vein of leg (~12/2015) Surgical History Hx of radical prostatectomy (04/2014) 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 Social History Smoking Status: Former smoker Smoking Status: Former smoker Substance Use Type: does not use Exam Narrative Exam Narrative: General: S somewhat frail appearing difficulty lifting and externally rotating the right leg. Able to give a complete and coherent history. Well-nourished well-developed HEENT: Moist mucous membranes, normal sclera with reactive pupils, Neck: No JVD, supple Respiratory: Lungs are clear to auscultation, no wheezing no rales no rhonchi. Full and symmetrical air movement Cardiac: Regular rate and rhythm. Mechanical snap, no bruits Abdomen: Soft, nontender, good bowel tones, no flank pain Pelvis and groin: Tender into the right hip joint itself as well as laterally along the ITB band. Slightly more fullness/edema in this area but no erythema. No inguinal hernias and no lower quadrant abdominal pain Skin: Warm and dry, resolving hematoma medial aspect of thigh and calf Neurologic: His vision globally unstable but Grossly neurologically intact with no obvious asymmetries or abnormalities Extremities: No trauma, well perfused, 2+ bilateral lower extremity edema without chronic venous stasis changes Psych: Cooperative, appropriate insight and affect Initial Vital Signs Initial Vital Signs: Vital Signs Temperature 97.4 F L 03/05/21 13:07 Pulse Rate 60 03/05/21 13:07 Respiratory Rate 22 03/05/21 13:07 Blood Pressure 191/86 H 03/05/21 13:07 Pulse Oximetry 100 03/05/21 13:07 Course Orders Ordered: ED Orders 03/05/21 15:12 Complete Blood Count AUTO DIFF Stat Comprehensive Metabolic Panel Stat Prostate Specific Antigen Stat Prothrombin Time INR Stat 03/05/21 16:09 CT abdomen pelvis w con Stat Discontinued Medications Oxycodone/Acetaminophen (Oxycodone/Acetaminophen 5/325 Tablet) 2 tab PO NOW ONE Stop: 03/05/21 15:01 Last Admin: 03/05/21 15:24 Dose: 2 tab Documented by: QUE Vital Signs Vital signs: Vital Signs - 8 hr 03/05/21 13:07 03/05/21 16:27 03/05/21 16:30 Temperature 97.4 F L Pulse Rate 60 68 67 Respiratory Rate 22 Blood Pressure 191/86 H 190/88 H Pulse Oximetry 100 96 99 MDM - Extremity Injury (Lower) Medical Records Attestation: I reviewed the patient's medical records. Lab Data Attestation: I reviewed the patient's lab results. Lab results narrative: Hemoglobin has only minimally declined most recent comparison was 11.0. 10.6 today INR 3.4, therapeutic for valve replacement Result diagrams: 03/05/21 15:12 03/05/21 15:12 Labs: Lab Results 03/05/21 03/05/21 03/05/21 Range/Units 15:12 15:12 15:12 WBC 5.6 (4.5-11.0) X10^3/uL RBC 3.69 L (4.5-5.9) X10^6/uL Hgb 10.6 L (13.5-17.5) g/dL Hct 32.7 L (41-53) % MCV 88.6 (80-100) fL MCH 28.8 (26-34) PG MCHC 32.5 (30-36) % RDW 14.9 H (11.6-14.8) % Plt Count 186 (150-400) X10^3/uL Neut % (Auto) 77.7 H (50-75) % Lymph % (Auto) 10.6 L (25-40) % [place] % (Auto) 8.0 (3-14) % Eos % (Auto) 3.3 (2-4) % Baso % (Auto) 0.4 (0-2) % Neut # (Auto) 4300 (1004-9564) /uL Lymph # (Auto) 600 L (3569-9612) /uL [place] # (Auto) 400 (0-900) /uL Eos # (Auto) 200 (0-450) /uL Baso # (Auto) 0 (0-100) /uL PT 38.7 H (10.1-12.7) SECONDS INR 3.4 H (0.9-1.3) Sodium 138 (137-145) mmol/L Potassium 4.0 (3.4-5.1) mmol/L Chloride 103 (98-107) mmol/L Carbon Dioxide 31 (22-32) mmol/L BUN 33 H (9-20) mg/dL Creatinine 1.21 (0.66-1.25) mg/dL Estimated GFR 57.4 L (>60) mL/min BUN/Creatinine Ratio 27.3 H (6-22) Glucose 180 H (80-110) mg/dL Calcium 9.1 (8.4-10.2) mg/dL Total Bilirubin 0.3 (0.2-1.3) mg/dL AST 40 (17-59) IU/L ALT 36 (<50) IU/L Alkaline Phosphatase 97 (38-126) U/L Total Protein 6.9 (6.3-8.2) g/dL Albumin 4.1 (3.5-5.0) g/dL Globulin 2.8 (1.7-4.1) g/dL Albumin/Globulin Ratio 1.5 (1.0-2.8) MDM Narrative Medical decision making narrative: Presents with right hip pain and a sensation that the hip is giving out. He has a large resolving hematoma that has track down the medial aspect of the thigh and the calf that has been clearing over the last month. He is anticoagulated with a mechanical aortic valve replacement. Initial labs are relatively reassuring with only a minor drop in hemoglobin. As I was explaining the CT scan that was ordered he mentioned that he had an MRI of the right hip in November and the doctor was somewhat concerned that he might have bone cancer and wanted to schedule him back. He has a been able to reschedule due to COVID issues. CT scan shows No inguinal hernias. No pelvic adenopathy. No presacral adenopathy. No CT evidence of a hematoma or other abnormal fluid collections or mass lesions in the visualized portions of the bilaterally hips and upper thigh.No evidence of developing hematoma to suggest cause of pain. No obvious tumors or masses and no pelvic abnormalities. At this point pain is most likely musculoskeletal has responded nicely to Percocet which he does have at home. Discharge Plan Departure Patient Disposition: Home Clinical Impression: Acute hip pain Qualifiers: Laterality: right Qualified Code(s): M25.551 - Pain in right hip Instructions: DI for Hip Pain Activity Restrictions/Additional Instructions: Thank you for coming in today With your Coumadin dose, today your INR was 3.4 and perfect, I worry about bleeding into odd spaces that might be causing the pain that you are having. With your history of prostate cancer in the increasing hip pain in the recent reports of an unusual MRI, I am concerned about the possibility of prostate cancer spreading. With the bruising down your leg, this clearly is bleeding that happened at least a month ago, but I am concerned that there still is something that could be contributing to this. The CT scan was very reassuring. There is no evidence of abnormal bleeding in your abdomen pelvis hip or thigh You do not have any evidence for an infected right hip There is no suggestion of prostate cancer spreading to the bones of your hip There are no masses or tumors in your abdomen or pelvis At this point, the most likely explanation for your hip pain is simply worsening arthritis. If I do think it was very appropriate to ask these questions. You can use Tylenol during the day and at night using use 1-2 Percocet to help with severe pain. Prescription for Percocet has been electronically transmitted to the [facility] pharmacy for you. If you develop a fever, have worsening symptoms, new findings or other concerns, please feel free to return to the ER Prescriptions: New oxycodone-acetaminophen 5-325 mg tablet 1 tab PO Q6H PRN (Reason: pain) Qty: 14 RF: 0 No Action Lantus Solostar U-100 Insulin 100 unit/mL (3 mL) insulin pen 35 unit SUBCUT BEDTIME RF: 0 clotrimazole 1 % cream 1 applictn TOP TID Qty: 113 RF: 0 sertraline 100 MG tablet 150 mg PO DAILY Qty: 0 RF: 0 multivitamin [Multiple Vitamins] 1 EACH tablet 1 tab PO DAILY Qty: 0 RF: 0 oxycodone-acetaminophen [Percocet] 5-325 mg tablet 1 tab PO Q6H PRN (Reason: pain) Qty: 60 RF: 0 (DME) handicap placard See Rx Instructions .Route .MEDSUPPLY Qty: 1 RF: 0 temazepam 30 mg capsule 30 mg PO BEDTIME PRN (Reason: sleep) Qty: 90 RF: 0 metoprolol tartrate 25 mg tablet 25 mg PO BID RF: 0 furosemide 40 mg tablet 120 mg PO DAILY RF: 0 prednisone 5 mg tablet 5 mg PO DAILY RF: 0 leflunomide 20 mg tablet 20 mg PO DAILY RF: 0 colchicine 0.6 mg Tablet 0.6 mg PO DAILY RF: 0 febuxostat 40 mg Tablet 40 mg PO DAILY RF: 0 Dialyvite [id number] lr-gw-bme-mg Tablet 1 tab PO DAILY RF: 0 Cinnamon Powder 1 dose PO DIRECTED RF: 0 magnesium oxide 420 mg Tablet 840 mg PO BEDTIME RF: 0 glucose 4 gram Tablet,Chewable 4 g PO Q15M PRN (Reason: glucose) RF: 0 fluticasone propionate 50 mcg/actuation [place],Suspension 1 spray INTRANASAL DIRECTED RF: 0 ferrous sulfate 324 mg (65 mg iron) Tablet,Delayed Release (Dr/Ec) 324 mg PO DAILY RF: 0 levothyroxine 175 MCG tablet 0.175 mg PO DAILY RF: 0 ranitidine HCl 150 MG tablet 150 mg PO BEDTIME RF: 0 Glucose: Home Monitor 1 ea miscellaneous DIRECTED RF: 0 Glucose: Test Strips 1 bot miscellaneous DIRECTED RF: 0 Lancet: Device 1 box miscellaneous BID RF: 0 calcitriol 0.5 mcg Capsule 0.5 mcg PO DAILY RF: 0 calcium carbonate-vitamin D3 [Calcium 500 + D] 500 mg(1,250mg) -200 unit Tablet 1 tab PO DAILY RF: 0 warfarin 5 mg tablet 7.5 mg PO .MWF RF: 0 warfarin 5 mg tablet 10 mg PO QTUTHSASU RF: 0 Referrals: Lamin Pena DO [Primary Care Provider] -
[2021-03-05] MEDS: OXYCODONE/ACETAMINOPHEN 5/325 TABLET 2 TAB PO (15:24)
[2021-03-05 15:32] LABS: Add Manual Diff / Slide Review NO; Basophils Absolute Auto 0 /uL (0-100); Basophils Percent Auto 0.4 % (0-2); Eosinophils Absolute Auto 200 /uL (0-450); Eosinophils Percent Auto 3.3 % (2-4); Hematocrit 32.7 % (41-53); Hemoglobin 10.6 g/dL (13.5-17.5); Lymphocytes Absolute Auto 600 /uL (1100-4500); Lymphocytes Percent Auto 10.6 % (25-40); Mean Corpuscular HGB Conc 32.5 % (30-36); Mean Corpuscular Hemoglobin 28.8 PG (26-34); Mean Corpuscular Volume 88.6 fL (80-100); Monocytes Absolute Auto 400 /uL (0-900); Neutrophils Absolute Auto 4300 /uL (1500-7000); Neutrophils Percent Auto 77.7 % (50-75); Platelet Count 186 X10^3/uL (150-400); Red Blood Cell Count 3.69 X10^6/uL (4.5-5.9); Red Cell Distribution Width 14.9 % (11.6-14.8); White Blood Cell Count 5.6 X10^3/uL (4.5-11.0)
[2021-03-05 15:40] LABS: INR 3.4 (0.9-1.3); Prothrombin Time 38.7 SECONDS (10.1-12.7)
[2021-03-05 15:47] LABS: Alanine Aminotransferase 36 IU/L (<50); Albumin 4.1 g/dL (3.5-5.0); Albumin Globulin Ratio 1.5 (1.0-2.8); Alkaline Phosphatase 97 U/L (38-126); Aspartate Aminotransferase 40 IU/L (17-59); BUN Creatinine Ratio 27.3 (6-22); Bilirubin Total 0.3 mg/dL (0.2-1.3); Blood Urea Nitrogen 33 mg/dL (9-20); Calcium 9.1 mg/dL (8.4-10.2); Carbon Dioxide 31 mmol/L (22-32); Chloride 103 mmol/L (98-107); Estimated Glomerular Filt Rate 57.4 mL/min (>60); Globulin 2.8 g/dL (1.7-4.1); Glucose 180 mg/dL (80-110); HEMOLYSIS < 15 (0-50); Sodium 138 mmol/L (137-145); Total Protein 6.9 g/dL (6.3-8.2)
--- NOTE | 2021-03-05 16:09 | DI.CT.S_ITS ---
PROCEDURE: CT ABDOMEN PELVIS W CON INDICATIONS: pelvic/hip pain extending to thigh, large thigh hematoma. TECHNIQUE: After the administration of intravenous contrast, 5 mm thick sections acquired from the diaphragm to the symphysis. 5 mm coronal and sagittal reformats were acquired. For radiation dose reduction, the following was used: automated exposure control, adjustment of mA and/or kV according to patient size. COMPARISON: [facility], CT, CT CHEST ABD PELVIS WO CON, 12/18/2015, 10:19. [facility], CT, ABDOMEN/PELVIS WITH CONTRAST, 12/06/2013, 8:20. FINDINGS: Image quality: Excellent. ABDOMEN: Lung bases: Lung bases are clear. Heart size is normal. Dense aortic valvular calcifications. This is unchanged. Solid organs: Liver is normal in size and enhancement. Gallbladder contained several densities in the gallbladder neck, consistent with cholelithiasis. No CT evidence for pericholecystic inflammatory changes or gallbladder wall thickening.. Biliary system is non dilated. Pancreas enhances normally. Spleen is normal in size and enhancement. No adrenal nodules. Right kidney is atrophic. No evidence for nephrolithiasis. No suspicious renal mass lesions. Persistent perinephric stranding likely representing senescent changes. No hydronephrosis. Course and caliber of the bilateral ureters are normal. No evidence for ureteral stones. Peritoneum and bowel: Bowel loops demonstrate normal wall thickness and caliber. No free fluid or air. Nodes and vessels: No retroperitoneal or mesenteric adenopathy by size criteria. Aorta and inferior vena cava are normal in size. Scattered atherosclerotic calcifications of the abdominal aorta and iliac vessels without aneurysmal dilatation. Miscellaneous: No ventral hernias. PELVIS: Genitourinary: There is mild circumferential wall thickening of the urinary bladder, likely related to incomplete distension. No perivesicular inflammatory stranding. No urinary bladder stones. Stable postsurgical changes of the pelvis. The prostate gland is not visualized and presumably resected. Miscellaneous: No inguinal hernias. No pelvic adenopathy. No presacral adenopathy. No CT evidence of a hematoma or other abnormal fluid collections or mass lesions in the visualized portions of the bilaterally hips and upper thigh. There is bilateral fatty atrophy of the musculature of the quadriceps. Bones: No suspicious bony lesions. No acute vertebral body compression fractures. Interval progression of multilevel spondylosis of the imaged spine, most pronounced at L1-2 and L2-3. IMPRESSION: 1. CT abdomen and pelvis without acute abnormalities. 2. No acute abnormalities identified in the pelvis or upper thighs to suggest presence of hematoma or other fluid collection. No inflammatory changes visualized. 3. Cholelithiasis without CT evidence for acute cholecystitis. 4. Circumferential urinary bladder wall thickening likely related to incomplete distension. Cystitis may have a similar appearance if clinically appropriate. 5. Right renal atrophy. 6. Stable postsurgical changes in the pelvis. No evidence for suspicious mass lesions, adenopathy, or suspicious osseous lesions. 7. Progression of multilevel spondylosis throughout the imaged spine but most pronounced at L1-2 and L2-3. Dictated by: Dane Warren M.D. on 03/05/2021 at 16:37 Approved by: Dane Warren M.D. on 03/05/2021 at 16:55
[2021-03-05 16:27] VITALS: PULSE 68; O2SAT 96
[2021-03-05 16:30] VITALS: BP 190/88; PULSE 67; O2SAT 99
[2021-03-05 17:18] VITALS: BP 170/89; PULSE 67; RESP 16; O2SAT 96
[2021-03-05 17:33] LABS: Prostate Specific Antigen < 0.064 ng/mL (0.10-4.00)
== END 2021-03-05 17:17 | disposition home or self-care (01) ==
PROVIDERS: Emergency Provider Emergency Medicine; PCP Family Medicine
DX: M25.551 Pain in right hip (principal); I25.10 Atherosclerotic heart disease of native coronary artery without angina pectoris; Z79.01 Long term (current) use of anticoagulants; I50.9 Heart failure, unspecified
CPT/HCPCS: 36415; 74177; 80053; 84153; 85025; 85610; 99284; Q9967